=== PATIENT | male | born 1960 | race Caucasian/White ===

== ENCOUNTER 2018-06-22 10:32 | Inpatient (IN) ==
--- NOTE | 2018-07-01 13:08 | Internal Med History&Physical ---
Addendum entered and electronically signed by Eder Arreguin MD 07/02/18 10:52: I have personally performed a face to face evaluation on this patient. I have re viewed and agree with the care plan. History and Exam by me shows: The patient was seen yesterday but was not yet entered in the computer system, therefore this is a late entry. The patient's is not currently available and history is from him. For this reason, it is somewhat limited. Please see exam below. 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 Apparently, he will need skull reinserted at some undetermined time in the future. He is on thickened liquid but otherwise a modified texture diet. He was apparently treated for aspiration pneumonia, while at [facility]. Because of his mechanical valve, he is on long-term Coumadin and this was therapeutic, apparently only earlier today. He has hyperlipidemia and hypertension which are treated chronically. He takes medication for GERD, seasonal allergies, and other problems as noted. 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 Patient has no complaint of chest discomfort, dyspnea, orthopnea, breathing problems, palpitations, nausea or vomiting, constipation or diarrhea, other changes in bowel habits, heartburn, difficulty with urination, kidney problems or kidney stones, fevers chills or sweats, rash or itching, seizures, headache or lightheadedness, heat or cold intolerance, blood problems or anemia, or other new complaints, except as mentioned above. Review of systems is otherwise negative. Examination: (Except as mentioned above): General: In no apparent distress, alert and oriented 3. The patient's speech limits exam, somewhat. This is because he has receptive and expressive aphasia. The receptive is minimal but expressive is significant with this pronunciation of words and difficulty with word finding. The patient is unable to express himself at times and this is obviously frustrating to him. Head: Atraumatic and normocephalic. He has an impression from the absence of his skull at the left frontal parietal area, with some excoriation but generally well-healed scar and no drainage or signs of infection. Eyes: Extraocular muscles are intact, pupils equal round and reactive to light and accommodation as can be assessed. Sclerae anicteric. Ears: External ears are normal to inspection and hearing is grossly normal. Nose: Patent without lesion noted. Mouth: No intraoral lesions seen. Dentition is unremarkable. Neck: Supple with trachea midline. There is no thyromegaly or adenopathy and carotids are 2+ without bruit heard. Respiratory: No use of accessory muscles. Lungs are clear throughout. Normal airflow. Cardiovascular: Regular rate and rhythm with crisp mechanical heart sounds heard at the left second intercostal space but not otherwise transmitted, without murmur appreciated. Abdomen: Bowel sounds are normal. No hepatosplenomegaly masses or tenderness. Obese and therefore difficult to palpate deeply. Extremities: No cyanosis clubbing or edema. Neurological: A and O 3. Cranial nerves II through XII are intact with only minimal right facial droop. He has 3+ to 4 minus/5 right hand dysfunction but is able to give some grasp and right hand dorsiflexion is seemingly stronger with his focused attention. This may represent mild agnosia. Right plantar dorsiflexion is 3/5. See notes about speech, above. Skin: Warm and non-diaphoretic with no lesions noted. He will be treated with therapies and this includes psychology to evaluate for reactive depression, etc. We will encourage him and continue therapy and a swing status. We will consider change to rehabilitation if he can tolerate. Breasts, pelvic and rectal: Not examined. Original Note: Date of Encounter: 07/01/18 Time of Encounter: 13:02 Assessment and Plan (1) Intracranial bleed Current visit: Yes Status: Acute Patient is a status post left temporal CVA with hemorrhagic conversion. Patient is status post left craniectomy with incision appearing healthy. Patient continues to have right hemiparesis residual and difficulty with speech, showing frequent word searching during complex questioning. Patient noted also has some difficulty following complex directions and appears to do better through demonstration, with possibility of receptive aphasia. Patient's neurological residual shows to be progressing well per medical records from previous facil ity. Patient denies any discomforts or shortness of breath. PT/OT evaluation pending. We will consult speech therapy for evaluation. Patient has been restarted on his Coumadin due to his history of mechanical valve replacement and atrial fibrillation. Labs when available and continue to monitor closely. (2) Atrial fibrillation and flutter Current visit: Yes Status: Chronic Patient with long history of atrial fibrillation. Per medical records patient had an issue with RVR at previous hospitalization. Currently patient's heart rate is irregular with controlled rate less than 100. Patient continues on Coumadin with pharmacy managing dose. We will continue with current medications (3) History of mechanical aortic valve replacement Current visit: Yes Status: Chronic Patient with history of a mechanical aortic valve replacement. Patient continu es on Coumadin with pharmacy dosing. No other acute issues. We will continue with current plan of care Internal Medicine - H&P: HPI Chief complaint: CVA Admitted From: Hospital to Hospital Transfer Plans for Post Hospital Care: Home History of present illness: Mr. Bee is a 58 year old male, who was admitted to [facility] on 06/06/2018 with symptoms of a stroke. Per medical records patient's symptoms that time of discharge was speech difficulty and word finding. Patient did not receive TPA due to currently began on Coumadin. Initial CT scan showed a temporal ischemic CVA and patient was admitted to this facility. By the next day patient's LOC had deteriorated and a follow-up CT scan showed patient to have a large temporal cranial bleed with mass effect. Patient was then taken to the OR for a left craniectomy. Per medical records patient's recovery afterwards was uneventful neurologically and patient was discharged to this facility for further rehabilitation for his CVA with right hemiparesis. On presentation patient continues to have mild right hemiparesis and continues to have some difficulty with word searching. Patient was advanced on his diet at previous facility and currently is on a dysphagia diet at time of admission. Patient has a history of a mechanical aortic valve and atrial fibrillation and continues on Coumadin. Patient did have issues with atrial fibrillation with RVR during his stay at previous facility but currently has a controlled ventricular rate less than 100. He denies any discomforts or shortness of breath. Patient denies any palpitations. Past Med Surg Social Fam HX - Past Medical History Source: old records reviewed Medical history: atrial fibrillation, myocardial infarction, valvular heart disease Psychiatric history: no psych history - Past Surgical History Surgical History: other (Mechanical aortic valve replacement 1989, aortic repair) Additional surgical history: mechanical aortic valve. traumatic aortic tear repaired - Social History Smoking Status: Never smoker Smokeless Tobacco Status: No Alcohol use: none Drug use: none - Family History Mother Living Status: Hx Family Cardiac Disorders: Yes Father Hx Family Cardiac Disorders: Yes (ND) Internal Medicine - H&P: Meds Atorvastatin [Lipitor] 20 mg PO DAILY 04/29/15 [History] Gabapentin [Neurontin] 600 mg PO DAILY 04/29/15 [History] Lansoprazole [Prevacid] 30 mg PO DAILY 06/05/18 [History] Nitroglycerin [Nitrostat] 0.4 mg PO AD 06/05/18 [History] Sotalol HCl [Betapace AF] 120 mg PO BID 06/05/18 [History] Warfarin [Coumadin] 5 mg PO MOWEFR 06/05/18 [History] Warfarin [Coumadin] 7 mg PO SUTUTHSA 06/05/18 [History] Zolpidem Tartrate 5 mg PO HS PRN 06/05/18 [History] Allergy/AdvReac Type Severity Reaction Status Date / Time No Known Allergies Allergy Verified 06/05/18 12:43 All Systems PM: A 10-system review of systems was performed and is negative for pertinent findings except as documented above in the HPI. - Constitutional Constitutional: as per HPI, no chills, no fever(s), no night sweats - EENT Eyes: as per HPI, no change in vision, no discharge, no pain, no photophobia Ears: no ear discharge, no ear pain, no tinnitus Nose, mouth and throat: no dysphagia, no nasal discharge, no neck pain, no sore throat - Cardiovascular Cardiovascular ROS IM: as per HPI, no chest pain, no diaphoresis, no dyspnea, no lightheadedness, no palpitations, no syncope - Respiratory Respiratory: as per HPI, no cough, no dyspnea, no wheezing, no excessive phlegm production - Gastrointestinal Gastrointestinal: as per HPI, no abdominal pain, no diarrhea, no hematemesis, no hematochezia, no melena, no nausea, no vomiting - Genitourinary Genitourinary ROS male: as per HPI - Musculoskeletal Musculoskeletal ROS IM: as per HPI, no numbness, no tingling - Integumentary Integumentary IM: as per HPI, no rash, no unusual bruising - Neurological Neurological ROS: as per HPI, no confusion, no convulsions, no focal weakness, no numbness, no tingling, no tremor(s) - Hematologic/Lymphatic Hematologic/Lymphatic: no easy bruising - Constitutional General appearance: Present: A&O X 2 Exam: Patient does have some difficulty with communication due to word search. Patient noted to become very frustrated during interview. Also noted to have difficulty with complex during physical exam. Patient required demonstrated task to be able to follow more complicated request. - Head Head exam: Present: atraumatic, normocephalic Additional comments: Patient has a left craniectomy incision to his scalp which appears dry and intact. Helmet and use when out of bed - Eye Eye exam: Present: PERRL, conjuntiva pink, sclera anicteric Pupils: Present: PERRL - Neck Neck exam general surgery: Present: supple, trachea midline. Absent: lymphadenopathy - Respiratory Respiratory exam: Present: CTAB. Absent: accessory muscle use, rales, rhonchi, wheezes - Cardiovascular Cardiovascular exam: Present: irregular rhythm, RRR, +S1, +S2. Absent: diastolic murmur, gallop, rubs, systolic murmur Additional comments: Ventricular rate controlled less than 100 - GI/Abdominal GI/Abdominal exam: Present: normal bowel sounds, soft, no peritoneal signs. Absent: distended, tenderness - Extremities Exam Extremities exam: Present: warm, radial pulses palpable and symmetrical. Absent: calf tenderness, cyanotic, pedal edema - Neurological Exam Neurological exam: Present: CN II-XII intact. Absent: pronater drift, facial droop, speech deficit Additional comments: Patient appears alert and able to answer simple questions properly. Patient noted to have difficulty and complex questioning due to word search, becoming frustrated. Tongue is midline. No facial droop noted. Right upper extremity with 4/5 muscle strength. Right leg shows 4/5 muscle strength. Noted 3+/5 muscle strength on dorsiflexion on the right. Left extremities show muscle strength at 5/5. - Skin Skin exam: Present: dry, intact
[2018-07-01] MEDS ORDERED: Warfarin perPT PO PRN (18:00)
[2018-07-01] MEDS ORDERED: *HR* Warfarin 5 MG TABLET PO ONE (18:00)
[2018-07-01] MEDS ORDERED: Acetaminophen 325 MG TABLET PO PRN (18:20)
[2018-07-01] MEDS ORDERED: Fluticasone Propionate Nasal 50 MCG/SPRAY BOTTLE NS PRN (18:20)
[2018-07-01] MEDS ORDERED: Loratadine 10 MG TABLET PO PRN (18:21)
[2018-07-01] MEDS: Gabapentin 300 MG CAPSULE PO SCH (20:58)
[2018-07-02 05:19] LABS: Hematocrit 31.7 % (37.5-50.1); Hemoglobin 9.8 g/dL (12.9-16.9); Mean Corpuscular HGB Conc 30.9 g/dL (31.6-35.5); Mean Corpuscular Hemoglobin 30.7 pg (28.0-33.3); Mean Corpuscular Volume 99.4 fL (83.0-100.0); Mean Platelet Volume 11.2 fL (9.4-12.4); Platelet Count 234 K/mcL (140-400); Red Blood Count 3.19 M/mcL (4.19-5.50); Red Cell Distribution Width 16.5 % (11.5-14.5)
[2018-07-02 05:34] LABS: INR 3.2; Prothrombin Time 35.6 Seconds (9.4-12.1)
[2018-07-02 05:46] LABS: Alanine Aminotransferase 38 Units/L (7-52); Albumin 2.9 g/dL (3.5-5.7); Albumin/Globulin Ratio 1.1 (1.1-2.2); Alkaline Phosphatase 96 Units/L (34-104); Aspartate Amino Transferase 26 Units/L (13-39); BUN/Creatinine Ratio 19 (6-26); Blood Urea Nitrogen 11 mg/dL (8-23); Calcium 8.5 mg/dL (8.6-10.3); Carbon Dioxide 29 mEq/L (23-29); Chloride 104 mEq/L (98-107); Globulin 2.6 g/dL (2.4-3.5); Glucose 104 mg/dL (70-105); Magnesium 1.8 mg/dL (1.6-2.6); Osmolality,Calculated 288 (280-300); Sodium 139 mEq/L (136-145); Total Protein 5.5 g/dL (6.4-8.9); eGFR For Non-African Americans > 60 (> 60)
[2018-07-02] MEDS: Gabapentin 300 MG CAPSULE PO SCH ×2 (08:06→21:00)
[2018-07-02] MEDS ORDERED: Fluticasone Propionate Nasal 50 MCG/SPRAY BOTTLE NS SCH (09:00)
[2018-07-02] MEDS ORDERED: Loratadine 10 MG TABLET PO SCH (09:00)
--- NOTE | 2018-07-02 10:16 | Internal Med Progress Note ---
Addendum entered and electronically signed by Eder Arreguin MD 07/02/18 12:16: I got to speak with , later this morning. He had his stroke on June 06 but a day or 2 after had severe headache and pain and was found to have subarachnoid hemorrhage because of the stroke. That is when he underwent craniotomy. He is to go on July 07 for a neurosurgical appointment including CT scan. Potentially on July 09, he is supposed to have his skull replaced. I di scussed with the importance of letting us know about what we should do with his Coumadin, IV heparin, or Lovenox in a therapeutic dose. She will tried to communicate with neurosurgery at [facility] and 40 have not heard by July 05, we need to try to coordinate with them, as we are a ble. Addendum entered and electronically signed by Eder Arreguin MD 07/02/18 11:03: I have personally performed a face to face evaluation on this patient. I have reviewed and agree with the care plan. History and Exam by me shows: He is without complaint and tolerated therapy, this morning. Nursing notes that he was seen by speech therapy who feels he needs to remain on thickened liquids. A modified barium swallow will be tried, next week. Discussed care with other providers and/or nursing. Patient has no complaint of chest discomfort, dyspnea, orthopnea, palpitations, nausea or vomiting, constipation or diarrhea, other changes in bowel habits, difficulty with urination, rash or itching, or other new complaints, except as mentioned above. Review of systems is otherwise negative. Examination: (Except as mentioned above): General: In no apparent distress. Alert and oriented 3. Nondiaphoretic. Speech and memory are not any different, then yesterday. Head: Atraumatic and normocephalic. Respiratory: No use of accessory muscles. Lungs are clear throughout. Normal airflow. Cardiovascular: Regular rate and rhythm without murmur appreciated and still with mechanical valve sounds at left base.. Abdomen: Bowel sounds are normal. No hepatosplenomegaly mass or tenderness appreciated. Obese and therefore difficult to palpate deeply. Extremities: No cyanosis clubbing or edema. Skin: Warm and non-diaphoretic with no new lesions noted. He seems stable and we are investigating his (treated) respiratory infection which may require isolation. Original Note: Date of Encounter: 07/02/18 Time of Encounter: 10:14 - Assessment and plan (1) Intracranial bleed Current Visit: Yes Status: Acute Assessment and plan: No acute issues. Patient's neurological exam appears unchanged from previous exam shown on medical records from hospital. Patient continues to have right hemiparesis and difficulty with word search. Patient also continues with dysphagia, continuing on a dysphagia diet. Patient to be seen by speech therapy today. Patient will continue with physical therapy. We will continue with current plan of care. (2) Atrial fibrillation and flutter Current Visit: Yes Status: Chronic Assessment and plan: No acute issues. Heart rate remains controlled with ventricular rate less than 100. Patient continues on Coumadin. (3) History of mechanical aortic valve replacement Current Visit: Yes Status: Chronic Assessment and plan: No acute issues. Patient continues on anticoagulation with Coumadin. We will continue with current medications. (4) Urine retention Current Visit: Yes Status: Acute Assessment and plan: Patient with reports of issues of urinary retention at previous facility. Continue with bladder scans over the next 48 hours. Bladder scans over the past 24 hours of shown minimal retention. We will continue to monitor closely. - Time Spent With Patient less than 15 minutes - Subjective Interval history: Patient appears relaxed and currently denies any discomforts or dyspnea. Nursing reports that patient's stated the patient had issues with urinary retention at previous facility. Nursing reports minimal amounts noted on bladder scans throughout yesterday. Patient continues to have some difficulty with word search when attempting to answer questions. - Constitutional Vitals: Temp Pulse Resp BP Pulse Ox 97.6 F 59 16 144/78 96 07/02/18 07:36 07/02/18 07:36 07/02/18 07:36 07/02/18 07:36 07/02/18 07:36 General appearance: Present: A&O X 2 Exam: Patient is to continue having difficulty with answering questions on time. Otherwise O 2. Patient also with difficulty answering complex questions. Noted difficulty following complex directions. Patient appears to do better with demonstration on complexed task. - Head Head exam: Present: atraumatic, normocephalic Additional comments: Left scalp craniectomy surgical wound appears to be healing well. - Eye Eye exam: Present: PERRL, conjuntiva pink, sclera anicteric Pupils: Present: PERRL - Neck Neck exam general surgery: Present: supple, trachea midline. Absent: lymphadenopathy - Respiratory Respiratory exam: Present: CTAB. Absent: accessory muscle use, rales, rhonchi, wheezes - Cardiovascular Cardiovascular exam: Present: irregular rhythm, RRR, +S1, +S2. Absent: diastolic murmur, gallop, rubs, systolic murmur Additional comments: Ventricular rate controlled less than 100 - GI/Abdominal GI/Abdominal exam: Present: normal bowel sounds, soft, no peritoneal signs. Absent: distended, tenderness - Extremities Exam Extremities exam: Present: warm, radial pulses palpable and symmetrical. Absent: calf tenderness, cyanotic, pedal edema - Neurological Exam Neurological exam: Present: CN II-XII intact, pronater drift, speech deficit. Absent: facial droop Additional comments: Patient continues to have some difficulty with speech, showing issues with word searching during answering of complex questions. Patient also noted to have so me difficulty following complex task, in which she does better through demonstration. Patient noted to have slight drift on the right upper extremity. Right upper extremity with 4/5 muscle strength. Right hand shows difficulty with fine motor. Right leg muscle strength at 4/5 with dorsiflexion at 3+/5. Left extremities have 5/5 muscle strength. - Skin Skin exam: Present: dry, intact Internal Medicine: Result - Labs CBC & Chem 7: 07/02/18 05:10 07/02/18 05:10 Labs: Short CBC 07/02/18 Range/Units 05:10 WBC 7.5 (4.3-11.1) K/mcL Hgb 9.8 L (12.9-16.9) g/dL Hct 31.7 L (37.5-50.1) % Plt Count 234 (140-400) K/mcL BMP 07/02/18 05:10 Sodium 139 Potassium 4.0 Chloride 104 Carbon Dioxide 29 BUN 11 Creatinine 0.58 L Glucose 104 Calcium 8.5 L Liver Function 07/02/18 Range/Units 05:10 Total Bilirubin 1.0 (0.3-1.0) mg/dL AST 26 (13-39) Units/L ALT 38 (7-52) Units/L Alkaline Phosphatase 96 (34-104) Units/L Albumin 2.9 L (3.5-5.7) g/dL - ABG Interpretation ABG results: PT/INR, D-dimer PT 35.6 Seconds (9.4-12.1) H 07/02/18 05:10 - Impressions Impressions Chest X-Ray 07/02/18 08:00 IMPRESSION: 1. No acute cardiopulmonary disease. 2. Stable cardiomegaly. 3. Stable chronic pleural and parenchymal scarring within the left lung base. D/ / 07/02/2018 09:12:49 Roney Pollard MD / juliann Interpreting Provider: Roney Pollard MD Consult Discharge Plan - Plan Referrals: Claudia Aleman MD [Primary Care Provider] -
[2018-07-02] MEDS ORDERED: *HR* Warfarin 10 MG TABLET PO ONE (18:00)
[2018-07-03 06:13] LABS: INR 3.6; Prothrombin Time 40.5 Seconds (9.4-12.1)
[2018-07-03] MEDS: Gabapentin 300 MG CAPSULE PO SCH ×2 (08:33→20:42)
[2018-07-03] MEDS ORDERED: Bisacodyl 10 MG RECTAL SUPPOSITORY RC PRN (12:04)
--- NOTE | 2018-07-03 14:16 | Internal Med Progress Note ---
Date of Encounter: 07/05/18 Time of Encounter: 14:40 - Subjective Interval history: Interval History Pt states not feeling as well last few days more tired less appetite PT had stroke early Jun 2018. He then sustained subarachnoid hemorrhage because of the stroke. That is when he underwent craniotomy. He is to go on July 07 for a [facility] neurosurgical follow up appointment including CT scan. Potentially later in July , he is supposed to have his skull replaced. At this time, he is continued on his therapeutic Coumadin. NSG would need to give different direction if this is to change. He currently has still dyphagia. He is overall weak and deconditioned. Today he reports no BM in several day, dry hard stool. REcent appetite not so good. No vomiting. He did have post op urinary retention. Today he feels he is not urinating well and had bladder scan over 350 will straight cath prn denies headache or CP Examination: General: In no apparent distress. Alert and oriented 3. thin WM with helmet on alert Head: large closed incision crown of head. Respiratory: No use of accessory muscles. Lungs are clear throughout. Normal airflow. Cardiovascular: heart tones, murmur appreciated and still with mechanical valve sounds at left base.. Abdomen: Bowel sounds are normal. nontender Extremities: No cyanosis clubbing or edema. Skin: Warm and non-diaphoretic with no new lesions noted. - Assessment and plan (1) Intracranial bleed Current Visit: Yes Status: Acute Assessment and plan: No acute issues. Pt SP CRANIOTOMY for SAH after CVA on chronic coumadin for cardiac valve Patient's neurological exam appears unchanged from previous exam shown on medical records from hospital. Patient continues to have right hemiparesis and difficulty with word search. Patient also continues with dysphagia, continuing on a dysphagia diet. continue with physical therapy and speech/ Pt would prefer his coumadin INR to be under 3.5 was 3.6 will hold coumadin today range INR for valve 2.5 to 3.5 would keep close to 2.5 since he had significant intracerebral bleeding continue to monitor PT recheck CBC he has been anemic check vitamin levels and add MVI . We will continue with current plan of care. (2) Atrial fibrillation and flutter Current Visit: Yes Status: Chronic Assessment and plan: No acute issues. Heart rate remains controlled with ventricular rate less than 100. Patient continues on Coumadin. - see above (3) History of mechanical aortic valve replacement Current Visit: Yes Status: Chronic Assessment and plan: No acute issues. Patient continues on anticoagulation with Coumadin. We will continue with current medications.- see above (4) Urine retention Current Visit: Yes Status: Acute Assessment and plan: Patient with reports of issues of urinary retention at previous facility. Continue with bladder scans q shift and straight cath if over 200 cc has symptomatic urinary retention - had this post surgery also check urinalysis he is also constipated and not eating well feeling tired will decrease gabapentin dose - Constitutional Vitals: Temp Pulse Resp BP Pulse Ox 98.9 F 67 16 134/80 95 07/03/18 09:00 07/03/18 09:00 07/03/18 09:00 07/03/18 09:00 07/03/18 09:00 General appearance: Present: A&O X 2 Internal Medicine: Result - Labs CBC & Chem 7: 07/05/18 05:40 07/05/18 05:40 - ABG Interpretation ABG results: PT/INR, D-dimer PT 40.5 Seconds (9.4-12.1) H 07/03/18 05:20 - Impressions Impressions Chest X-Ray 07/02/18 08:00 IMPRESSION: 1. No acute cardiopulmonary disease. 2. Stable cardiomegaly. 3. Stable chronic pleural and parenchymal scarring within the left lung base. D/ /02/2018 09:12:49 Roney Pollard MD / juliann Interpreting Provider: Roney Pollard MD Consult Discharge Plan - Plan Referrals: Claudia Aleman MD [Primary Care Provider] -
[2018-07-03] MEDS ORDERED: Warfarin perPT PO PRN (15:19)
[2018-07-03] MEDS ORDERED: *HR* Warfarin 2.5 MG TABLET PO ONE (18:00)
[2018-07-04 04:55] LABS: INR 3.7; Prothrombin Time 42.3 Seconds (9.4-12.1)
[2018-07-04] MEDS: Gabapentin 300 MG CAPSULE PO SCH (10:12)
[2018-07-04] MEDS: Acetaminophen 325 MG TABLET PO PRN (17:09)
[2018-07-04] MEDS ORDERED: *HR* Warfarin 2.5 MG TABLET PO ONE (18:00)
[2018-07-04] MEDS: Lactobacillus 1 EACH CAP.SPRINK PO SCH (20:13)
[2018-07-04] MEDS: Gabapentin 100 MG CAPSULE PO SCH (20:14)
[2018-07-04] MEDS: Mirtazapine 15 MG TABLET PO SCH (20:15)
[2018-07-04] MEDS: Ascorbic Acid 500 MG TABLET PO SCH (20:25)
[2018-07-04 23:24] LABS: Bilirubin,Urine Negative (Negative); Blood,Urine Small (Negative); Clarity,Urine Slightly Cloudy (Clear); Glucose,Urine (UA) Normal (Normal); Ketones,Urine Negative (Negative); Leukocyte Esterase,Urine Moderate (Negative); Nitrite,Urine Negative (Negative); Protein,Urine Negative (Neg-Trace); Urobilinogen,Urine Normal (Normal)
[2018-07-04 23:25] LABS: Color,Urine Yellow (Yellow)
[2018-07-04 23:26] LABS: Amorphous Sediment,Urine Few (Few); Bacteria,Urine Few per hpf (None-Few)
[2018-07-05 06:17] LABS: Hematocrit 32.6 % (37.5-50.1); Mean Corpuscular HGB Conc 30.7 g/dL (31.6-35.5); Mean Corpuscular Hemoglobin 30.4 pg (28.0-33.3); Mean Corpuscular Volume 99.1 fL (83.0-100.0); Mean Platelet Volume 11.8 fL (9.4-12.4); Platelet Count 189 K/mcL (140-400); Red Blood Count 3.29 M/mcL (4.19-5.50); Red Cell Distribution Width 16.3 % (11.5-14.5)
[2018-07-05 06:19] LABS: INR 2.8; Prothrombin Time 31.8 Seconds (9.4-12.1)
[2018-07-05 06:29] LABS: BUN/Creatinine Ratio 19 (6-26); Blood Urea Nitrogen 13 mg/dL (8-23); Calcium 8.7 mg/dL (8.6-10.3); Carbon Dioxide 31 mEq/L (23-29); Chloride 105 mEq/L (98-107); Glucose 108 mg/dL (70-105); Osmolality,Calculated 291 (280-300); Potassium 3.9 mEq/L (3.5-5.1); Sodium 140 mEq/L (136-145); eGFR For Non-African Americans > 60 (> 60)
[2018-07-05 06:32] LABS: Albumin 2.9 g/dL (3.5-5.7); Bilirubin,Direct 0.2 mg/dL (0.0-0.2); Bilirubin,Indirect 0.8 mg/dL (0.0-1.2); Globulin 2.8 g/dL (2.4-3.5); Total Protein 5.7 g/dL (6.4-8.9)
[2018-07-05] MEDS: Lactobacillus 1 EACH CAP.SPRINK PO SCH ×2 (09:55→21:26)
[2018-07-05] MEDS: Gabapentin 100 MG CAPSULE PO SCH ×2 (09:55→21:26)
[2018-07-05] MEDS: Acetaminophen 325 MG TABLET PO PRN ×2 (09:56→16:49)
[2018-07-05] MEDS: Ascorbic Acid 500 MG TABLET PO SCH ×2 (09:56→21:27)
--- NOTE | 2018-07-05 11:57 | Internal Med Progress Note ---
Date of Encounter: 07/04/18 Time of Encounter: 14:30 - Subjective Interval history: Interval History Pt states not feeling as well last few days more dysuria more tired less appetite took miralax and suppository still not BM did pass gas and small bits urination feels difficult and mild painful still needs bladder scan for today to see if retention he says it feels like it flomax was added yesterday 0.4 mg PT had stroke early Jun 2018. He then sustained large subarachnoid hemorrhage because of the stroke. That is when he underwent craniotomy and has to wear protective helmet for now. He is to go on July 07 for a [facility] neurosurgical follow up appointment including CT scan. Potentially later in July , he is supposed to have his skull replaced. At this time, he is continued on his therapeutic Coumadin. NSG would need to give different direction if this is to change. He currently has still dyphagia. He is overall weak and deconditioned. No vomiting. He did have post op urinary retention also denies headache or CP Examination: General: In no apparent distress. more talkative today thin WM with helmet on alert Head: large closed incision crown of head. Respiratory: No use of accessory muscles. Lungs are clear throughout. Normal airflow. Cardiovascular: heart tones, murmur appreciated and still with mechanical valve sounds at left base.. Abdomen: Bowel sounds are normal. nontender Extremities: No cyanosis clubbing or edema. Skin: Warm and non-diaphoretic with no new lesions noted. - Assessment and plan (1) Intracranial bleed Current Visit: Yes Status: Acute Assessment and plan: No acute issues. Pt SP CRANIOTOMY for large SAH after CVA on chronic coumadin for cardiac valve Patient's neurological exam appears unchanged from previous exam shown on medical records from hospital. Patient continues to have right hemiparesis and difficulty with word search. Patient also continues with dysphagia, continuing on a dysphagia diet. continue with physical therapy and speech/ Pt would prefer his coumadin INR to be under 3.5 was 3.7 today did get 2.5 mg coumadin yesterday range INR for valve 2.5 to 3.5 would keep close to 2.5 since he had signific ant intracerebral bleeding continue to monitor PT recheck CBC shows stable HB at 10 macrocytic B12 level pend check vitamin levels and add MVI . We will continue with current plan of care. (2) Atrial fibrillation and flutter Current Visit: Yes Status: Chronic Assessment and plan: No acute issues. Heart rate remains controlled with ventricular rate less than 100. Patient continues on Coumadin. - see above (3) History of mechanical aortic valve replacement Current Visit: Yes Status: Chronic Assessment and plan: No acute issues. Patient continues on anticoagulation with Coumadin. We will continue with current medications.- see above (4) Urine retention Current Visit: Yes Status: Acute Assessment and plan: Patient with reports of issues of urinary retention at previous facility. Continue with bladder scans q shift and straight cath if over 200 cc has symptomatic urinary retention - had this post surgery also check urinalysis added fliomax he is also constipated and not eating well feeling tired will decrease gabapentin dose abd xray - Constitutional Vitals: Temp Pulse Resp BP Pulse Ox 98.7 F 69 17 120/70 94 07/05/18 07:59 07/05/18 07:59 07/05/18 07:59 07/05/18 07:59 07/05/18 07:59 General appearance: Present: A&O X 2 Internal Medicine: Result - Labs CBC & Chem 7: 07/05/18 05:40 07/05/18 05:40 Labs: Short CBC 07/05/18 Range/Units 05:40 WBC 9.1 (4.3-11.1) K/mcL Hgb 10.0 L (12.9-16.9) g/dL Hct 32.6 L (37.5-50.1) % Plt Count 189 (140-400) K/mcL BMP 07/05/18 05:40 Sodium 140 Potassium 3.9 Chloride 105 Carbon Dioxide 31 H BUN 13 Creatinine 0.67 L Glucose 108 H Calcium 8.7 Liver Function 07/05/18 Range/Units 05:40 Total Bilirubin 1.0 (0.3-1.0) mg/dL Direct Bilirubin 0.2 (0.0-0.2) mg/dL AST 18 (13-39) Units/L ALT 26 (7-52) Units/L Alkaline Phosphatase 80 (34-104) Units/L Albumin 2.9 L (3.5-5.7) g/dL Urine 07/04/18 Range/Units 22:55 Urine Color Yellow (Yellow) Urine Clarity Slightly Cloudy A (Clear) Urine pH 6.0 (5.0-8.0) pH Units Ur Specific [place] 1.010 (1.010-1.025) Urine Protein Negative (Neg-Trace) mg/dL Urine Glucose (UA) Normal (Normal) mg/dL - ABG Interpretation ABG results: PT/INR, D-dimer PT 31.8 Seconds (9.4-12.1) H 07/05/18 05:40 - Impressions Impressions Abdomen X-Ray 07/04/18 13:50 IMPRESSION: Nonobstructive bowel gas pattern. No acute process identified. D/ / Arsh Celestin MD / Arsh Celestin MD Interpreting Provider: Arsh Celestin MD Consult Discharge Plan - Plan Referrals: Claudia Aleman MD [Primary Care Provider] -
--- NOTE | 2018-07-05 12:04 | Internal Med Progress Note ---
Addendum entered and electronically signed by Eder Arreguin MD 07/05/18 13:12: I have personally performed a face to face evaluation on this patient. I have r eviewed and agree with the care plan. History and Exam by me shows: Patient is without complaint although he feels markedly tired, after therapies, today. He is doing relatively well and I discussed with nursing about his anticoagulation in anticipation of possible surgery on Thursday. Bowels are still a concern and while he has had small movements, he has not had adequate movement, per him. Discussed laxatives and enema as needed with nursing and with patient. Discussed care with other providers and/or nursing. Patient has no complaint of chest discomfort, dyspnea, orthopnea, palpitations, nausea or vomiting, constipation or diarrhea, other changes in bowel habits, difficulty with urination, rash or itching, or other new complaints, except as mentioned above. Review of systems is otherwise negative. Examination: (Except as mentioned above): General: In no apparent distress. Alert and oriented 3. Nondiaphoretic. Head: Atraumatic and normocephalic. Respiratory: No use of accessory muscles. Lungs are clear throughout. Normal airflow. Cardiovascular: Regular rate and rhythm without murmur appreciated. Abdomen: Bowel sounds are normal. No hepatosplenomegaly mass or tenderness appreciated. Obese and therefore difficult to palpate deeply. Extremities: No cyanosis clubbing or edema. Skin: Warm and non-diaphoretic with no new lesions noted. Neurologic: He has markedly improved right upper extremity function and while he has mild ataxia, this is significantly stronger than 3 days ago. He still has speech disorders but this seems mainly expressive, and minimally receptive, if at all. Original Note: Date of Encounter: 07/05/18 Time of Encounter: 12:02 - Assessment and plan (1) Atrial fibrillation and flutter Current Visit: Yes Status: Chronic Assessment and plan: Rate and Rhythm stable. Continue Coumadin. Will follow INR. Pharmacy to dose Coumadin. (2) History of mechanical aortic valve replacement Current Visit: Yes Status: Chronic Assessment and plan: Continue Coumadin. Pharmacy to dose according to INR (3) Stroke Current Visit: Yes Status: Acute Assessment and plan: Continue PT and OT. Will follow progress. Continue speech therapy for aphasia and dysphagia . Helmet on when up status post craniotomy. Follow up with neurology as scheduled. Qualifiers: CVA mechanism: unspecified Qualified Code(s): I63.9 - Cerebral infarction, unspecified - Time Spent With Patient less than 15 minutes - Subjective Interval history: pt laying in bed, family at bedside. denies any complaints. bowels moving little. abd xray yesterday normal. maintaining appetite and hydration. participating with therapy. wearing helmet when up. urine culture pending. - Constitutional Vitals: Temp Pulse Resp BP Pulse Ox 98.7 F 69 17 120/70 94 07/05/18 07:59 07/05/18 07:59 07/05/18 07:59 07/05/18 07:59 07/05/18 07:59 General appearance: Present: cooperative, A&O X 2, pleasant, no acute distress, answers questions appropriately Exam: aphasic - Head Head exam: Present: atraumatic, normocephalic - Eye Eye exam: Present: PERRL, conjuntiva pink, sclera anicteric Pupils: Present: PERRL - Neck Neck exam general surgery: Present: supple, trachea midline. Absent: lymphadeno marine - Respiratory Respiratory exam: Present: CTAB. Absent: accessory muscle use, rales, rhonchi, wheezes - Cardiovascular Cardiovascular exam: Present: RRR, +S1, +S2. Absent: diastolic murmur, gallop, rubs, systolic murmur - GI/Abdominal GI/Abdominal exam: Present: normal bowel sounds, soft, no peritoneal signs. Absent: distended, tenderness - Extremities Exam Extremities exam: Present: warm, radial pulses palpable and symmetrical. Ab sent: calf tenderness, cyanotic, pedal edema Additional comments: RUE strength 3/5. LLE slight nonpitting edema. - Incison Comments: craniotomy site, no drainage, no sign of infection - Neurological Exam Neurological exam: Present: CN II-XII intact, oriented X3, no focal deficits. Absent: pronater drift, facial droop, speech deficit - Skin Skin exam: Present: dry, intact Internal Medicine: Result - Labs CBC & Chem 7: 07/05/18 05:40 07/05/18 05:40 Labs: Short CBC 07/05/18 Range/Units 05:40 WBC 9.1 (4.3-11.1) K/mcL Hgb 10.0 L (12.9-16.9) g/dL Hct 32.6 L (37.5-50.1) % Plt Count 189 (140-400) K/mcL BMP 07/05/18 05:40 Sodium 140 Potassium 3.9 Chloride 105 Carbon Dioxide 31 H BUN 13 Creatinine 0.67 L Glucose 108 H Calcium 8.7 Liver Function 07/05/18 Range/Units 05:40 Total Bilirubin 1.0 (0.3-1.0) mg/dL Direct Bilirubin 0.2 (0.0-0.2) mg/dL AST 18 (13-39) Units/L ALT 26 (7-52) Units/L Alkaline Phosphatase 80 (34-104) Units/L Albumin 2.9 L (3.5-5.7) g/dL Urine 07/04/18 Range/Units 22:55 Urine Color Yellow (Yellow) Urine Clarity Slightly Cloudy A (Clear) Urine pH 6.0 (5.0-8.0) pH Units Ur Specific [place] 1.010 (1.010-1.025) Urine Protein Negative (Neg-Trace) mg/dL Urine Glucose (UA) Normal (Normal) mg/dL - ABG Interpretation ABG results: PT/INR, D-dimer PT 31.8 Seconds (9.4-12.1) H 07/05/18 05:40 - Impressions Impressions Abdomen X-Ray 07/04/18 13:50 IMPRESSION: Nonobstructive bowel gas pattern. No acute process identified. D/ / Arsh Celestin MD / Arsh Celestin MD Interpreting Provider: Arsh Celestin MD Consult Discharge Plan - Plan Referrals: Claudia Aleman MD [Primary Care Provider] -
[2018-07-05] MEDS ORDERED: *HR* Warfarin 5 MG TABLET PO ONE (18:00)
[2018-07-05] MEDS: Mirtazapine 15 MG TABLET PO SCH (21:26)
[2018-07-06 05:58] LABS: INR 2.2; Prothrombin Time 25.3 Seconds (9.4-12.1)
[2018-07-06 05:59] LABS: Hematocrit 33.6 % (37.5-50.1); Hemoglobin 10.4 g/dL (12.9-16.9); Mean Corpuscular Hemoglobin 30.5 pg (28.0-33.3); Mean Corpuscular Volume 98.5 fL (83.0-100.0); Mean Platelet Volume 11.5 fL (9.4-12.4); Platelet Count 182 K/mcL (140-400); Red Blood Count 3.41 M/mcL (4.19-5.50); Red Cell Distribution Width 16.1 % (11.5-14.5)
[2018-07-06 06:10] LABS: BUN/Creatinine Ratio 22 (6-26); Blood Urea Nitrogen 15 mg/dL (8-23); Calcium 8.7 mg/dL (8.6-10.3); Carbon Dioxide 30 mEq/L (23-29); Chloride 104 mEq/L (98-107); Glucose 112 mg/dL (70-105); Osmolality,Calculated 290 (280-300); Sodium 139 mEq/L (136-145); eGFR For Non-African Americans > 60 (> 60)
[2018-07-06] MEDS: Gabapentin 100 MG CAPSULE PO SCH ×2 (08:53→20:21)
[2018-07-06] MEDS: Lactobacillus 1 EACH CAP.SPRINK PO SCH ×2 (08:54→20:20)
[2018-07-06] MEDS: Ascorbic Acid 500 MG TABLET PO SCH ×2 (08:54→20:26)
--- NOTE | 2018-07-06 12:28 | Internal Med Progress Note ---
Addendum entered and electronically signed by Eder Arreguin MD 07/06/18 13:12: I have personally performed a face to face evaluation on this patient. I have r eviewed and agree with the care plan. History and Exam by me shows: Patient was busy with therapies and other situations so multiple attempts to visit him were unsuccessful, by me. Original Note: Date of Encounter: 07/06/18 Time of Encounter: 12:26 - Assessment and plan (1) Atrial fibrillation and flutter Current Visit: Yes Status: Chronic Assessment and plan: Rate and Rhythm stable. Continue Coumadin. Will follow INR. Pharmacy to dose Coumadin. (2) History of mechanical aortic valve replacement Current Visit: Yes Status: Chronic Assessment and plan: Continue Coumadin. Pharmacy to dose according to INR (3) Stroke Current Visit: Yes Status: Acute Assessment and plan: Continue PT and OT. Will follow progress. Continue speech therapy for aphasia and dysphagia . Helmet on when up status post craniotomy. Follow up with neurology as scheduled. Qualifiers: CVA mechanism: unspecified Qualified Code(s): I63.9 - Cerebral infarction, unspecified - Time Spent With Patient less than 15 minutes - Subjective Interval history: pt up in [facility], family at bedside. denies any complaints. bowels moved yesterday. maintaining appetite and hydration. participating with therapy. w earing helmet when up. urine culture pending. - Constitutional Vitals: Temp Pulse Resp BP Pulse Ox 97.9 F 79 16 144/76 93 07/06/18 08:39 07/06/18 08:39 07/06/18 08:39 07/06/18 08:39 07/06/18 08:39 General appearance: Present: cooperative, A&O X 2, pleasant, no acute distress, answers questions appropriately - Head Head exam: Present: atraumatic, normocephalic - Eye Eye exam: Present: PERRL, conjuntiva pink, sclera anicteric Pupils: Present: PERRL - Neck Neck exam general surgery: Present: supple, trachea midline. Absent: lymphadenopathy - Respiratory Respiratory exam: Present: CTAB. Absent: accessory muscle use, rales, rhonchi, wheezes - Cardiovascular Cardiovascular exam: Present: RRR, +S1, +S2. Absent: diastolic murmur, gallop, rubs, systolic murmur - GI/Abdominal GI/Abdominal exam: Present: normal bowel sounds, soft, no peritoneal signs. Absent: distended, tenderness - Extremities Exam Extremities exam: Present: warm, radial pulses palpable and symmetrical. Absent: calf tenderness, cyanotic, pedal edema Additional comments: RUE strength 4/5 - Neurological Exam Neurological exam: Present: CN II-XII intact, oriented X3, no focal deficits. Absent: pronater drift, facial droop, speech deficit - Skin Skin exam: Present: dry, intact Internal Medicine: Result - Labs CBC & Chem 7: 07/06/18 05:47 07/06/18 05:47 Labs: Short CBC 07/06/18 Range/Units 05:47 WBC 5.4 (4.3-11.1) K/mcL Hgb 10.4 L (12.9-16.9) g/dL Hct 33.6 L (37.5-50.1) % Plt Count 182 (140-400) K/mcL BMP 07/06/18 05:47 Sodium 139 Potassium 4.0 Chloride 104 Carbon Dioxide 30 H BUN 15 Creatinine 0.69 L Glucose 112 H Calcium 8.7 - ABG Interpretation ABG results: PT/INR, D-dimer PT 25.3 Seconds (9.4-12.1) H 07/06/18 05:47 Consult Discharge Plan - Plan Referrals: Claudia Aleman MD [Primary Care Provider] -
[2018-07-06] MEDS ORDERED: *HR* Warfarin 7.5 MG TABLET PO ONE (18:00)
[2018-07-06] MEDS: Mirtazapine 15 MG TABLET PO SCH (20:21)
[2018-07-06] MEDS: Acetaminophen 325 MG TABLET PO PRN (20:26)
[2018-07-07 06:24] LABS: Hematocrit 34.2 % (37.5-50.1); Hemoglobin 10.4 g/dL (12.9-16.9); Mean Corpuscular HGB Conc 30.4 g/dL (31.6-35.5); Mean Corpuscular Hemoglobin 30.1 pg (28.0-33.3); Mean Corpuscular Volume 98.8 fL (83.0-100.0); Mean Platelet Volume 11.8 fL (9.4-12.4); Platelet Count 178 K/mcL (140-400); Red Blood Count 3.46 M/mcL (4.19-5.50); Red Cell Distribution Width 15.9 % (11.5-14.5)
[2018-07-07 06:25] LABS: Prothrombin Time 22.4 Seconds (9.4-12.1)
[2018-07-07 06:40] LABS: BUN/Creatinine Ratio 23 (6-26); Blood Urea Nitrogen 15 mg/dL (8-23); Calcium 8.7 mg/dL (8.6-10.3); Carbon Dioxide 29 mEq/L (23-29); Chloride 107 mEq/L (98-107); Glucose 97 mg/dL (70-105); Osmolality,Calculated 295 (280-300); Potassium 4.4 mEq/L (3.5-5.1); Sodium 142 mEq/L (136-145); eGFR For Non-African Americans > 60 (> 60)
[2018-07-07] MEDS: Gabapentin 100 MG CAPSULE PO SCH ×2 (09:02→21:23)
[2018-07-07] MEDS: Lactobacillus 1 EACH CAP.SPRINK PO SCH ×2 (09:03→21:22)
[2018-07-07] MEDS: Ascorbic Acid 500 MG TABLET PO SCH ×2 (09:03→21:23)
--- NOTE | 2018-07-07 11:41 | Internal Med Progress Note ---
Date of Encounter: 07/07/18 Time of Encounter: 11:39 - Assessment and plan (1) Atrial fibrillation and flutter Current Visit: Yes Status: Chronic Assessment and plan: This is intermittent as he currently sounds and regular rhythm. Mechanical heart valve sounds are noted. (2) History of mechanical aortic valve replacement Current Visit: Yes Status: Chronic Assessment and plan: This is not significantly different. He is on Coumadin for same. (3) Left temporal lobe infarction Current Visit: No Status: Acute Assessment and plan: This was worsened by bleeding and he is to undergo reimplantation of his skull at some point in the future. He is to go to [facility] for a follow-up CAT scan, Thursday. (4) Urine retention Current Visit: Yes Status: Acute Assessment and plan: This has been mild here but will require clinical follow-up. (5) Constipation Current Visit: Yes Status: Acute Assessment and plan: This is intermittently a problem and will need to be carefully followed. Qualifiers: Constipation type: slow transit constipation Qualified Code(s): K59.01 - Slow transit constipation - Subjective Interval history: Patient remains discouraged about his speech but admits that his right upper extremity is getting better. He denies other complaints and feels that he is getting a lot from therapy. Patient has no complaint of chest discomfort, dyspnea, orthopnea, palpitations, nausea or vomiting, constipation or diarrhea, other changes in bowel habits, difficulty with urination, rash or itching, or other new complaints, except as m entioned above. Review of systems is otherwise negative. I discussed management of her care with nursing staff. - Constitutional Vitals: Temp Pulse Resp BP Pulse Ox 98.1 F 61 16 149/84 97 07/07/18 07:17 07/07/18 07:17 07/07/18 07:17 07/07/18 07:17 07/07/18 07:17 Exam: Examination: (Except as mentioned above): General: In no apparent distress. Alert and oriented 3. Nondiaphoretic. Head: Atraumatic and normocephalic. Respiratory: No use of accessory muscles. Lungs are clear throughout. Normal airflow. Cardiovascular: Regular rate and rhythm without murmur appreciated. Abdomen: Bowel sounds are normal. No hepatosplenomegaly mass or tenderness appreciated. Obese and therefore difficult to palpate deeply. Extremities: No cyanosis clubbing or edema. Patient and nursing are concerned about right calf edema but this is not any worse than baseline. Neurologic: Right upper extremity grasp and dorsiflexion are improved versus yesterday. Speech is also slightly improved but he still has receptive and expressive difficulties. Skin: Warm and non-diaphoretic with no new lesions noted. Internal Medicine: Result - Labs CBC & Chem 7: 07/07/18 05:35 07/07/18 05:35 Labs: Short CBC 07/07/18 Range/Units 05:35 WBC 5.4 (4.3-11.1) K/mcL Hgb 10.4 L (12.9-16.9) g/dL Hct 34.2 L (37.5-50.1) % Plt Count 178 (140-400) K/mcL [facility] 07/07/18 05:35 Sodium 142 Potassium 4.4 Chloride 107 Carbon Dioxide 29 BUN 15 Creatinine 0.66 L Glucose 97 Calcium 8.7 - ABG Interpretation ABG results: PT/INR, D-dimer PT 22.4 Seconds (9.4-12.1) H 07/07/18 05:35 Consult Discharge Plan - Plan Referrals: Claudia Aleman MD [Primary Care Provider] -
[2018-07-07] MEDS ORDERED: *HR* Warfarin 7.5 MG TABLET PO ONE (18:00)
[2018-07-07] MEDS ORDERED: Amoxicillin 500 MG CAPSULE PO SCH (21:00)
[2018-07-07] MEDS: Mirtazapine 15 MG TABLET PO SCH (21:23)
[2018-07-08 05:46] LABS: Hematocrit 33.9 % (37.5-50.1); Hemoglobin 10.6 g/dL (12.9-16.9); Mean Corpuscular HGB Conc 31.3 g/dL (31.6-35.5); Mean Corpuscular Hemoglobin 30.4 pg (28.0-33.3); Mean Corpuscular Volume 97.1 fL (83.0-100.0); Mean Platelet Volume 11.6 fL (9.4-12.4); Platelet Count 186 K/mcL (140-400); Red Blood Count 3.49 M/mcL (4.19-5.50); Red Cell Distribution Width 15.8 % (11.5-14.5)
[2018-07-08 05:51] LABS: INR 2.4; Prothrombin Time 26.6 Seconds (9.4-12.1)
[2018-07-08 05:58] LABS: BUN/Creatinine Ratio 26 (6-26); Blood Urea Nitrogen 15 mg/dL (8-23); Calcium 8.6 mg/dL (8.6-10.3); Carbon Dioxide 29 mEq/L (23-29); Chloride 102 mEq/L (98-107); Glucose 107 mg/dL (70-105); Osmolality,Calculated 285 (280-300); Potassium 3.8 mEq/L (3.5-5.1); Sodium 137 mEq/L (136-145); eGFR For Non-African Americans > 60 (> 60)
[2018-07-08] MEDS: Lactobacillus 1 EACH CAP.SPRINK PO SCH ×2 (09:02→22:43)
[2018-07-08] MEDS: Sulfamethoxazole/Trimeth DS 1 EACH TABLET PO SCH ×2 (09:02→22:46)
[2018-07-08] MEDS: Gabapentin 100 MG CAPSULE PO SCH ×2 (09:02→22:44)
[2018-07-08] MEDS: Ascorbic Acid 500 MG TABLET PO SCH ×2 (09:02→22:45)
--- NOTE | 2018-07-08 11:06 | Internal Med Progress Note ---
Addendum entered and electronically signed by Eder Arreguin MD 07/08/18 11:27: I have personally performed a face to face evaluation on this patient. I have r eviewed and agree with the care plan. History and Exam by me shows: I discussed plan treatment with patient on 2 occasions. To summarize, he is to be discharged from here on July 12, return for 4 days of IV heparin at [facility], and to undergo reimplantation of his skull bone on 07/16/2018. He will then be therefore a day or 2 and return here, thereafter. He feels bowels are moving well and he has no abdominal pain. He denies other problems. Discussed care with other providers and/or nursing. Patient has no complaint of chest discomfort, dyspnea, orthopnea, palpitations, nausea or vomiting, constipation or diarrhea, other changes in bowel habits, difficulty with urination, rash or itching, or other new complaints, except as mentioned above. Review of systems is otherwise negative. Examination: (Except as mentioned above): General: In no apparent distress. Alert and oriented 3. Nondiaphoretic. Head: Atraumatic and normocephalic. Respiratory: No use of accessory muscles. Lungs are clear throughout. Normal airflow. Cardiovascular: Regular rate and rhythm without murmur appreciated. Abdomen: Bowel sounds are normal. No hepatosplenomegaly mass or tenderness a ppreciated. Obese and therefore difficult to palpate deeply. Extremities: No cyanosis clubbing or edema. Neurologic: He has minimal thumb extensor weakness and abductor weakness, on the right. Otherwise, grasp and function seemed to be normal. He still has receptive and expressive aphasia although this still seems better than a couple of days ago. Skin: Warm and non-diaphoretic with no new lesions noted. We will continue therapies until 07/12/2018. Original Note: Date of Encounter: 07/08/18 Time of Encounter: 11:04 - Assessment and plan (1) Intracranial bleed Current Visit: Yes Status: Acute Assessment and plan: No acute issues. Patient's neurological exam appears slightly improved from previous exam shown on medical records from hospital. Patient continues to have right hemiparesis and difficulty with word search. Patient noted to have slight improvement on fine motor with right hand. Patient continues with physical therapy and is progressing well. (2) Atrial fibrillation and flutter Current Visit: Yes Status: Chronic Assessment and plan: No acute issues. Heart rate remains controlled with ventricular rate less than 100. Patient continues on Coumadin. (3) History of mechanical aortic valve replacement Current Visit: Yes Status: Chronic Assessment and plan: No acute issues. Patient continues on anticoagulation with Coumadin. We will continue with current medications. (4) Urine retention Current Visit: Yes Status: Acute Assessment and plan: Patient with reports of issues of urinary retention at previous facility. Bladder scan has had minimal results. We will continue to monitor at least once daily - Subjective Interval history: Patient appears relaxed and currently denies any discomforts or dyspnea. Patient noted to continue have some difficulty with word searching during conversation. Patient states he believes disease any stronger with his right hand. Therapy states that patient has improved during therapy. Nursing reports patient continues to have minimal residual on bladder scans. - Constitutional Vitals: Temp Pulse Resp BP Pulse Ox 98.6 F 75 18 128/83 95 07/08/18 07:18 07/08/18 07:18 07/08/18 07:18 07/08/18 07:18 07/08/18 07:18 General appearance: Present: cooperative, A&O X 2, pleasant, no acute distress, answers questions appropriately Exam: Patient is oriented but noted to have some difficulty at times with time. Continues to have some difficulty with word searching during conversation but is appropriate with answers simple questions. Patient noted to continue have some difficulty following complex directions, requiring demonstration cueing - Head Head exam: Present: atraumatic, normocephalic Additional comments: Left head craniectomy surgical incision appears well-healed. Patient continues disease helmet during therapy - Eye Eye exam: Present: PERRL, conjuntiva pink, sclera anicteric Pupils: Present: PERRL - Neck Neck exam general surgery: Present: supple, trachea midline. Absent: lymphaden opathy - Respiratory Respiratory exam: Present: CTAB. Absent: accessory muscle use, rales, rhonchi, wheezes - Cardiovascular Cardiovascular exam: Present: RRR, +S1, +S2. Absent: diastolic murmur, gallop, rubs, systolic murmur - GI/Abdominal GI/Abdominal exam: Present: normal bowel sounds, soft, no peritoneal signs. Absent: distended, tenderness - Extremities Exam Extremities exam: Present: warm, radial pulses palpable and symmetrical. A bsent: calf tenderness, cyanotic, pedal edema - Neurological Exam Neurological exam: Present: CN II-XII intact, oriented X3, speech deficit. Absent: pronater drift, facial droop Additional comments: Alert. Oriented 2, continue with some difficulty with time. Patient continues to have some difficulty following complex directions requiring demonstration for cueing. Patient also continues to have some word searching during complexed questioning. Slight right hemiparesis with right extremities at 4+/5. Noted improvement with fine motor on right hand. Left extremities at 5/5. - Skin Skin exam: Present: dry, intact Internal Medicine: Result - Labs CBC & Chem 7: 07/08/18 05:15 07/08/18 05:15 Labs: Short CBC 07/08/18 Range/Units 05:15 WBC 6.3 (4.3-11.1) K/mcL Hgb 10.6 L (12.9-16.9) g/dL Hct 33.9 L (37.5-50.1) % Plt Count 186 (140-400) K/mcL [facility] 07/08/18 05:15 Sodium 137 Potassium 3.8 Chloride 102 Carbon Dioxide 29 BUN 15 Creatinine 0.58 L Glucose 107 H Calcium 8.6 - ABG Interpretation ABG results: PT/INR, D-dimer PT 26.6 Seconds (9.4-12.1) H 07/08/18 05:15 Consult Discharge Plan - Plan Referrals: Claudia Aleman MD [Primary Care Provider] -
[2018-07-08] MEDS ORDERED: *HR* Warfarin 5 MG TABLET PO ONE (18:00)
[2018-07-08] MEDS: Mirtazapine 15 MG TABLET PO SCH (22:44)
[2018-07-09 05:16] LABS: Mean Corpuscular HGB Conc 31.4 g/dL (31.6-35.5); Mean Corpuscular Hemoglobin 30.4 pg (28.0-33.3); Mean Corpuscular Volume 96.7 fL (83.0-100.0); Mean Platelet Volume 10.9 fL (9.4-12.4); Platelet Count 171 K/mcL (140-400); Red Blood Count 3.62 M/mcL (4.19-5.50); Red Cell Distribution Width 15.8 % (11.5-14.5)
[2018-07-09 05:21] LABS: INR 2.8; Prothrombin Time 31.5 Seconds (9.4-12.1)
[2018-07-09 05:28] LABS: BUN/Creatinine Ratio 21 (6-26); Blood Urea Nitrogen 14 mg/dL (8-23); Calcium 8.5 mg/dL (8.6-10.3); Carbon Dioxide 28 mEq/L (23-29); Chloride 104 mEq/L (98-107); Glucose 110 mg/dL (70-105); Osmolality,Calculated 289 (280-300); Sodium 139 mEq/L (136-145); eGFR For Non-African Americans > 60 (> 60)
[2018-07-09] MEDS: Lactobacillus 1 EACH CAP.SPRINK PO SCH ×2 (08:45→22:47)
[2018-07-09] MEDS: Gabapentin 100 MG CAPSULE PO SCH ×2 (08:45→22:51)
[2018-07-09] MEDS: Ascorbic Acid 500 MG TABLET PO SCH ×2 (08:46→22:47)
[2018-07-09] MEDS: Sulfamethoxazole/Trimeth DS 1 EACH TABLET PO SCH ×2 (08:46→22:48)
--- NOTE | 2018-07-09 10:50 | Internal Med Progress Note ---
Addendum entered and electronically signed by Eder Arreguin MD 07/09/18 12:47: I have personally performed a face to face evaluation on this patient. I have r eviewed and agree with the care plan. History and Exam by me shows: The patient is without complaint. He feels that he is "doing pretty well." I discussed plans with him and July 12, he is to be returned to [facility] for 4 or 5 days of IV heparin while he comes off Coumadin. They apparently have prescribed Bactroban for his nares because of his MRSA history although no such information came directly to us. This is been ordered and should start today. Discussed care with other providers and/or nursing. Patient has no complaint of chest discomfort, dyspnea, orthopnea, palpitations, nausea or vomiting, constipation or diarrhea, other changes in bowel habits, difficulty with urination, rash or itching, or other new complaints, except as mentioned above. Review of systems is otherwise negative. Examination: (Except as mentioned above): General: In no apparent distress. Alert and oriented 3. Nondiaphoretic. Head: Atraumatic and normocephalic. Respiratory: No use of accessory muscles. Lungs are clear throughout. Normal airflow. Cardiovascular: Regular rate and rhythm without murmur appreciated. Abdomen: Bowel sounds are normal. No hepatosplenomegaly mass or tenderness appreciated. Obese and therefore difficult to palpate deeply. Patient is examined upright at bedside and this also limits exam. Extremities: No cyanosis clubbing or edema. Neurologic: Exam is identical to yesterday. Right upper extremity is nearly normal and speech is still receptive and expressive but slowly and surely continues to improve. Skin: Warm and non-diaphoretic with no new lesions noted. Original Note: Date of Encounter: 07/09/18 Time of Encounter: 10:48 - Assessment and plan (1) Intracranial bleed Current Visit: Yes Status: Acute Assessment and plan: No acute issues. Patient's neurological exam appears slightly improved from previous exam shown on medical records from hospital. Patient continues to have right hemiparesis and difficulty with word search. Patient noted to have slight improvement on fine motor with right hand. Patient's ambulation noted im provement with use of brace on the right foot due to dorsiflexion weakness. Patient being prepared for transfer to [facility] on Thursday for preparation of surgery for replacement of craniectomy flap. Patient was started on Bactroban nasal swabs twice a day as requested as a preop. Patient continues with physical therapy and is progressing well. (2) Atrial fibrillation and flutter Current Visit: Yes Status: Chronic Assessment and plan: No acute issues. Heart rate remains controlled with ventricular rate less than 100. Patient continues on Coumadin. (3) History of mechanical aortic valve replacement Current Visit: Yes Status: Chronic Assessment and plan: No acute issues. Patient continues on anticoagulation with Coumadin with current INR therapeutic. Coumadin being managed per pharmacy. We will continue with current medications. - Time Spent With Patient less than 15 minutes - Subjective Interval history: Patient appears relaxed and currently denies any discomforts or dyspnea. Patient noted to continue have some difficulty with word searching during conversation. Patient being prepared for transfer to [facility] on Thursday prepare for surgery for replacement of craniectomy flap. Patient started on Bactroban nasal swabs as a request preoperative - Constitutional Vitals: Temp Pulse Resp BP Pulse Ox 98.4 F 64 17 140/83 95 07/09/18 07:30 07/09/18 07:30 07/09/18 07:30 07/09/18 07:30 07/09/18 07:30 General appearance: Present: cooperative, A&O X 2, pleasant, no acute distress, answers questions appropriately Exam: Patient continues to have some difficulty with conversation having continued word search during complexed answers. - Head Head exam: Present: atraumatic, normocephalic Additional comments: Left scalp craniectomy incision appears healthy and healing well. Patient with helmet and use during therapy - Eye Eye exam: Present: PERRL, conjuntiva pink, sclera anicteric Pupils: Present: PERRL - Neck Neck exam general surgery: Present: supple, trachea midline. Absent: lymphadenopathy - Respiratory Respiratory exam: Present: CTAB. Absent: accessory muscle use, rales, rhonchi, wheezes - Cardiovascular Cardiovascular exam: Present: RRR, +S1, +S2. Absent: diastolic murmur, gallop, rubs, systolic murmur - GI/Abdominal GI/Abdominal exam: Present: normal bowel sounds, soft, no peritoneal signs. Absent: distended, tenderness - Extremities Exam Extremities exam: Present: warm, radial pulses palpable and symmetrical. Absent: calf tenderness, cyanotic, pedal edema - Neurological Exam Neurological exam: Present: CN II-XII intact, oriented X3, speech deficit. Absent: pronater drift, facial droop Additional comments: Patient appears relaxed and is able to answer simple questions appropriately. Patient noted to have some difficulty with word searching during complexed answers. Continued right hemiparesis with right extremities at 4+/5. Right dorsiflexion noted that for/5 and brace and use during ambulation. Left extremities and 5/5. - Skin Skin exam: Present: dry, intact Internal Medicine: Result - Labs CBC & Chem 7: 07/09/18 05:08 07/09/18 05:08 Labs: Short CBC 07/09/18 Range/Units 05:08 WBC 6.6 (4.3-11.1) K/mcL Hgb 11.0 L (12.9-16.9) g/dL Hct 35.0 L (37.5-50.1) % Plt Count 171 (140-400) K/mcL BMP 07/09/18 05:08 Sodium 139 Potassium 4.0 Chloride 104 Carbon Dioxide 28 BUN 14 Creatinine 0.68 L Glucose 110 H Calcium 8.5 L - ABG Interpretation ABG results: PT/INR, D-dimer PT 31.5 Seconds (9.4-12.1) H 07/09/18 05:08 Consult Discharge Plan - Plan Referrals: Claudia Aleman MD [Primary Care Provider] -
[2018-07-09] MEDS ORDERED: *HR* Warfarin 5 MG TABLET PO ONE (18:00)
[2018-07-09] MEDS: Mirtazapine 15 MG TABLET PO SCH (22:48)
[2018-07-10 06:00] LABS: Prothrombin Time 33.8 Seconds (9.4-12.1)
[2018-07-10] MEDS: Gabapentin 100 MG CAPSULE PO SCH ×2 (10:26→20:43)
[2018-07-10] MEDS: Lactobacillus 1 EACH CAP.SPRINK PO SCH ×2 (10:26→20:43)
[2018-07-10] MEDS: Sulfamethoxazole/Trimeth DS 1 EACH TABLET PO SCH ×2 (10:27→20:43)
[2018-07-10] MEDS: Ascorbic Acid 500 MG TABLET PO SCH ×2 (10:27→20:43)
--- NOTE | 2018-07-10 11:07 | Internal Med Progress Note ---
Date of Encounter: 07/10/18 Time of Encounter: 11:20 - Subjective Interval history: Interval History pt has some improvement. He is eating somewhat better PT had stroke early Jun 2018. He then sustained large subarachnoid hemorrhage because of the stroke. That is when he underwent craniotomy and has to wear protective helmet for now. He is followed by [facility] neurosurgical follow up - after SAH. Potentially on Thursday, he is supposed to have his skull replaced. NSG will direct coumadin. denies headache or CP is supportive Examination: General: In no apparent distress. more talkative today thin WM alert Head: large closed incision crown of head. Respiratory: No use of accessory muscles. Lungs are clear throughout. Normal a irflow. Cardiovascular: heart tones, murmur appreciated and still with mechanical valve sounds at left base.. Abdomen: Bowel sounds are normal. nontender Extremities: No cyanosis clubbing or edema. Skin: Warm and non-diaphoretic with no new lesions noted. - Assessment and plan (1) Intracranial bleed Current Visit: Yes Status: Acute Assessment and plan: No acute issues. Pt SP CRANIOTOMY for large SAH after CVA on chronic coumadin for cardiac valve Patient's neurological exam appears unchanged from previous exam shown on medical records from hospital. Patient continues to have right hemiparesis and difficulty with word search. This is improving somewhat. Patient also continues with dysphagia, continue with physical therapy and speech/ Pt has coumadin on hold now as he will go to [facility] for repair of skull. . We will continue with current plan of care. (2) Atrial fibrillation and flutter Current Visit: Yes Status: Chronic Assessment and plan: No acute issues. Heart rate remains controlled with ventricular rate less than 100. P (3) History of mechanical aortic valve replacement Current Visit: Yes Status: Chronic Assessment and plan: No acute issues. Patient continues on anticoagulation with Coumadin that is on hold now and will be restarted per [facility] surgeons. We will continue with current medications.- see above (4) Urine retention Current Visit: Yes Status: Acute Assessment and plan: Patient with reports of issues of urinary retention at previous facility. added fliomax - Constitutional Vitals: Temp Pulse Resp BP Pulse Ox 97.8 F 72 16 118/72 98 07/10/18 07:30 07/10/18 07:30 07/10/18 07:30 07/10/18 07:30 07/10/18 07:30 General appearance: Present: cooperative, A&O X 2, pleasant, no acute distress, answers questions appropriately Internal Medicine: Result - Labs CBC & Chem 7: 07/09/18 05:08 07/09/18 05:08 - ABG Interpretation ABG results: PT/INR, D-dimer PT 33.8 Seconds (9.4-12.1) H 07/10/18 05:35 Consult Discharge Plan - Plan Referrals: Claudia Aleman MD [Primary Care Provider] -
[2018-07-10] MEDS ORDERED: *HR* Warfarin 2.5 MG TABLET PO ONE (18:00)
[2018-07-10] MEDS: Mirtazapine 15 MG TABLET PO SCH (20:43)
[2018-07-11 04:58] LABS: INR 2.9; Prothrombin Time 32.8 Seconds (9.4-12.1)
[2018-07-11] MEDS: Ascorbic Acid 500 MG TABLET PO SCH ×2 (09:25→20:45)
[2018-07-11] MEDS: Lactobacillus 1 EACH CAP.SPRINK PO SCH ×2 (09:25→20:45)
[2018-07-11] MEDS: Gabapentin 100 MG CAPSULE PO SCH ×2 (09:25→20:45)
[2018-07-11] MEDS: Sulfamethoxazole/Trimeth DS 1 EACH TABLET PO SCH ×2 (09:26→20:45)
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
[2018-07-11] MEDS: Mirtazapine 15 MG TABLET PO SCH (20:45)
[2018-07-12 07:52] VITALS: BP 162/82
[2018-07-12] MEDS: Sulfamethoxazole/Trimeth DS 1 EACH TABLET PO SCH (08:03)
[2018-07-12] MEDS: Ascorbic Acid 500 MG TABLET PO SCH (08:03)
[2018-07-12] MEDS: Gabapentin 100 MG CAPSULE PO SCH (08:03)
[2018-07-12] MEDS: Lactobacillus 1 EACH CAP.SPRINK PO SCH (08:03)
--- NOTE | 2018-07-12 13:06 | Discharge Summary ---
- NOTES TO OUTPATIENT PROVIDER Notes to Outpatient Provider: Recommend modified barium swallow before return. We are unable to perform this at [facility]. Date of Encounter: 07/12/18 Time of Encounter: 13:04 - Discharge Diagnosis (1) Atrial fibrillation and flutter Priority: Secondary Status: Chronic Comments: Rate and rhythm controlled. Continue current medication. (2) History of mechanical aortic valve replacement Priority: Secondary Status: Chronic Comments: Rate and rhythm controlled. Continue current medication. (3) Stroke Priority: Primary Status: Acute Comments: Making good progress with PT, OT and speech therapy. Transferring to [facility] for projected 2nd surgery of craniotomy for the end of this week. Speech therapy recommends modified barium swallow prior to return to therapy. We are unable to perform this act [facility]. Qualifiers: CVA mechanism: unspecified Qualified Code(s): I63.9 - Cerebral infarction, unspecified Hospital course: Mr. Bee is a 58 year old male discharging from rehab to go to [facility] for surgery at the end of this week to replace skull. Coumadin has been held at this time in anticipation for surgery. Patient is making good progress with PT, OT, speech therapy. at bedside at this time. Patient denies any current complaints. No new neurological deficits. Bowels moved this morning. speech is slightly clearer, still has word finding difficulty and some short term recall problem PT had stroke early Jun 2018. He then sustained large subarachnoid hemorrhage because of the stroke. That is when he underwent craniotomy and has to wear protective helmet for now. He is followed by [facility] neurosurgical follow up - after SAH. Discharge discussed with: patient, family, nurse, social work - Time Spent with Patient Total time spent providing and/or coordinating discharge services: Less than 30 minutes - Discharge Medications Home Medications: Atorvastatin [Lipitor] 80 mg PO DAILY 04/29/15 [History] Lansoprazole [Prevacid] 30 mg PO DAILY 06/05/18 [History] Sotalol HCl [Betapace AF] 120 mg PO BID 06/05/18 [History] Zolpidem Tartrate 5 mg PO HS PRN 06/05/18 [History] Fluticasone Propionate Nasal [Flonase] 50 mcg NS DAILY 07/01/18 [History] Gabapentin [Neurontin] 300 mg PO BID 07/01/18 [History] Loratadine [Allergy Relief] 10 mg PO DAILY 07/01/18 [History] Allergies/Adverse Reactions: Allergy/AdvReac Type Severity Reaction Status Date / Time No Known Allergies Allergy Verified 06/05/18 12:43 Date of admission: 07/01/18 12:57 Primary care physician: Claudia Aleman MD Consults: 07/01/18 13:21 Consult to Nutrition [CONS] Routine Comment: Consulting Provider: NUTRITION Reason for Dietary Consult: PO Supplementation 07/01/18 13:22 Consult to Occupational Therapy [CONS] Routine Comment: s/p cva Reason for Consult: s/p cva Does patient have active BEDREST order?: No Is patient medically & hemodynamically stable?: Yes Patient assessed for mobility or mobilized this visit?: No Consult to Physical Therapy [CONS] Routine Comment: s/p cva Reason for Consult: s/p cva Does patient have active BEDREST order?: No Is patient medically & hemodynamically stable?: Yes Patient assessed for mobility or mobilized this visit?: No Consult to Recreational Therapy [CONS] Routine Comment: Consult to Supervisor Of Operations [CONS] Routine Reason for SW Consult: s/p cva 07/01/18 13:26 Consult to Speech Therapy [CONS] Routine Comment: Evaluate, develop and implement POC Reason for Consult: s/p cva Call Completed: Yes 07/01/18 13:33 Consult to Physical Medicine/Rehab [CONS] Routine Reason for Consult: s/p cva Call Completed: No 07/01/18 14:13 Consult to Supervisor Of Operations [CONS] Routine Reason for SW Consult: poa paper ifo and d/c planning Discharging clinician: Eder Arreguin Anticipated date of discharge: 07/12/18 - Constitutional Vitals: Temp Pulse Resp BP Pulse Ox 97.6 F 62 18 162/82 97 07/12/18 07:41 07/12/18 07:41 07/12/18 07:41 07/12/18 07:41 07/12/18 07:41 General appearance: Present: cooperative, A&O X 2, pleasant, no acute distress, answers questions appropriately - Head Head exam: Present: atraumatic, normocephalic - Eye Eye exam: Present: PERRL, conjuntiva pink, sclera anicteric Pupils: Present: PERRL - Neck Neck exam general surgery: Present: supple, trachea midline. Absent: lymphadenopathy - Respiratory Respiratory exam: Present: CTAB. Absent: accessory muscle use, rales, rhonchi, wheezes - Cardiovascular Cardiovascular exam: Present: RRR, +S1, +S2. Absent: diastolic murmur, gallop, rubs, systolic murmur - GI/Abdominal GI/Abdominal exam: Present: normal bowel sounds, soft, no peritoneal signs. Absent: distended, tenderness - Extremities Exam Extremities exam: Present: warm, radial pulses palpable and symmetrical. Absent: calf tenderness, cyanotic, pedal edema Additional comments: Slight right sided weakness - Neurological Exam Neurological exam: Present: CN II-XII intact, oriented X3, no focal deficits. Absent: pronater drift, facial droop, speech deficit - Skin Skin exam: Present: dry, intact - Patient Status Disposition: Transfer Short-Term Hosp Condition: Good Functional capacity at discharge: wheelchair bound Overall status at discharge: patient is progressing back to baseline - Discharge Instructions Follow Up With: Claudia Aleman MD [Primary Care Provider] - - Diet and Activity Activity: as per physical therapy Diet: other
== END 2018-07-12 13:45 | disposition short-term general hospital (02) | DRG 57 ==
LOC: INPGRE 07-01 12:57